=== PATIENT | female | born 1950 | race Caucasian/White ===

== ENCOUNTER 2017-05-28 16:50 | Emergency (ER) | payer BC ==
--- NOTE | 2017-05-28 18:33 | ED ---
Lower Extremity - HPI Summary HPI Summary: 67 female presents to ED with complaints of right hip pain that has been ongoing for the past 2 weeks, and not improving. Patient states she has tried taking Advil here and there along with tylenol and has not had relief. She has not been taking that constantly however, only because she does not like taking medication. States she sometimes gets numbness/tingling sensation in right lower extremity/foot intermittently. She feels the pain is dull and aching however gets sharp and shooting with certain movement. States twisting is the worst pain. Feels weak and like it will give out sometimes when walking and bearing weight, although she is able to. No known injury or trauma however, she has been using abducter machine and works out at the gym. Does not remember a specific injury. PMHx includes HTN, otherwise healthy. Denies swelling, bruising , redness and obvious deformity. No rash, no tick bites or other joint pains/ aches. - History of Current Complaint Chief Complaint: EDExtremityLower Stated Complaint: RT HIP PAIN Time Seen by Provider: 05/28/17 17:51 Hx Obtained From: Patient Mechanism Of Injury: Unknown Onset/Duration: Weeks - 2 Severity Initially: Mild Severity Currently: Moderate Pain Intensity: 8 Pain Scale Used: 0-10 Numeric Location: Is Discrete @ - anterior right hip Character Of Pain: Sharp, Dull, Aching Associated Signs And Symptoms: Positive: Negative Aggravating Factor(s): Standing, Ambulation, Movement, Weight Bearing Alleviating Factor(s): Rest, Nothing Able to Bear Weight: Yes - Allergies/Home Medications Allergies/Adverse Reactions: Allergies Allergy/AdvReac Type Severity Reaction Status Date / Time No Known Allergies Allergy Verified 05/28/16 13:50 PMH/Surg Hx/FS Hx/Imm Hx Endocrine/Hematology History: Reports: Hx Thyroid Disease Denies: Hx Diabetes Cardiovascular History: Reports: Hx Angina, Hx Hypertension Denies: Hx Coronary Artery Disease, Hx Hypercholesterolemia, Hx Myocardial Infarction Respiratory History: Denies: Hx Asthma, Hx Chronic Obstructive Pulmonary Disease (COPD) GI History: Denies: Hx Ulcer - Cancer History Hx Chemotherapy: No Hx Radiation Therapy: No - Surgical History Surgery Procedure, Year, and Place: thyroid gland removed ? 2010 - Immunization History Date of Tetanus Vaccine: up to date per pt Immunizations Up to Date: Yes Infectious Disease History: No Infectious Disease History: Denies: Hx Clostridium Difficile, Hx Hepatitis, Hx Human Immunodeficiency Virus (HIV), Hx of Known/Suspected MRSA, History Other Infectious Disease, Traveled Outside the [place] in Last 30 Days - Family History Known Family History: Positive: None Family History: Breast cancer - Social History Alcohol Use: Occasionally Substance Use Type: Reports: None Smoking Status (MU): Never Smoked Tobacco Review of Systems Constitutional: Negative Cardiovascular: Negative Respiratory: Negative Positive: Arthralgia, Myalgia, Decreased ROM - right hip Skin: Negative Positive: Paresthesia - intermittent All Other Systems Reviewed And Are Negative: Yes Physical Exam Triage Information Reviewed: Yes Vital Signs On Initial Exam: Initial Vitals Temp Pulse Resp BP Pulse Ox 97.8 F 61 18 140/92 97 05/28/17 16:55 05/28/17 16:55 05/28/17 16:55 05/28/17 16:55 05/28/17 16:55 Vital Signs Reviewed: Yes Appearance: Positive: Well-Appearing, Well-Nourished, Pain Distress - mild/ moderate with movement Skin: Positive: Warm, Skin Color Reflects Adequate Perfusion, Dry, Soft. Negative: Cold, Numb, Pale, Erythema @ Head/Face: Positive: Normal Head/Face Inspection Eyes: Positive: Conjunctiva Clear ENT: Positive: Hearing grossly normal Neck: Positive: Supple, Nontender Respiratory/Lung Sounds: Positive: Clear to Auscultation, Breath Sounds Present. Negative: Rales, Rhonchi, Wheezes Cardiovascular: Positive: Normal, RRR, Pulses are Symmetrical in both Upper and Lower Extremities - 2+ pedal b/l. Negative: Murmur, Rub Musculoskeletal: Positive: Normal, Strength/ROM Intact, Pain @ - right anterior hip, Other - anterior labral tear test, madhav, no crepitus step off or obvious deformity no edema ecchymosis or erythema. Negative: Interruption @, Abnormal @ , Edema Left, Edema Right Neurological: Positive: Normal, Sensory/Motor Intact, Alert, Oriented to Person Place, Time, CN Intact II-III, Reflexes Intact, NV Bundle Intact Distally, Abnormal Gait - favoring left side holding right hip but able to walk, negative trendelenburg shift Diagnostics - Vital Signs Vital Signs Temp Pulse Resp BP Pulse Ox 05/28/17 16:55 97.8 F 61 18 140/92 97 - Laboratory Lab Statement: Any lab studies that have been ordered have been reviewed, and results considered in the medical decision making process. - Radiology right hip/pelvis Xray Interpretation: No Acute Changes Radiology Interpretation Completed By: Radiologist Re-Evaluation - Re-Evaluation First Eval Re-Evaluation Time: 07:15 Change: Unchanged - updated on imaging results and plan. agrees and understands Lower Extremity Course/Dx - Course Course Of Treatment: requested right hip xray. appears to be suffering from MSK related pain/strain, possible labrum injury. agreed to toradol while in ED. will try NSAIDs and muscle relaxers for the next 2-3 days to see if improves and RICE. Avoid physical activity and strenuous exercise. Heating pad. Aware of worsening signs and symptoms to watch out for. Follow up with PCP for recheck as further imaging and evaluation may be required if symptoms do not improve. No other concerns for emergent etiolgy at this time. Normal vitals. - Diagnoses Differential Diagnosis/HQI/PQRI: Positive: Arthritis, Sprain, Strain, Tendonitis , Other - labrum tear Provider Diagnoses: Sprain of right hip, Hip pain, right Discharge - Discharge Plan Condition: Good Disposition: HOME Prescriptions: Cyclobenzaprine TAB* [Flexeril 10 MG TAB*] 5 mg PO BEDTIME PRN #7 tab PRN Reason: Spasms Naproxen TAB* [Naprosyn 375 mg TAB*] 375 mg PO Q8H PRN #14 tab PRN Reason: Pain Patient Education Materials: Hip Sprain (ED), Hip Pain (ED) Referrals: Deepti Engle MD [Primary Care Provider] - Delmar Castorena MD [Medical Doctor] - Additional Instructions: Take prescribed medication as directed. Muscle relaxer (flexeril) tonight at bedtime. Take naproxen (anti-inflammatory) tomorrow morning at 10am and 6pm, with food. Rest, ice and apply heat. Avoid working out and excessive physical activity until symptoms improve. Continue for 3-5 days while symptoms persists. Any new or worsening symptoms please seek medical attention promptly. Follow up with PCP as you may need further evaluation and work up if symptoms persist.
--- NOTE | 2017-05-28 18:56 | RAD ---
INDICATION: Atraumatic right hip pain COMPARISON: None TECHNIQUE: An AP view of the pelvis and AP views of the hip in neutral and abducted position were obtained FINDINGS: Bones: There are no acute bony findings. Joint spaces: The hips articulate normally. The joint spaces are preserved. SI joints/symphysis: The SI joints and symphysis are intact. Other: None IMPRESSION: THE BONY STRUCTURES ARE NORMAL FOR AGE. NO ACUTE FINDINGS.
[2017-05-28] MEDS ORDERED: Ketorolac INJ* 30 MG/ML 1 ML VIAL IM ONE (19:20)
[2017-05-28] MEDS ORDERED: Cyclobenzaprine TAB* 10 MG PO ONE (19:56)
[2017-05-28] MEDS ORDERED: Cyclobenzaprine TAB* 10 MG ONE (19:56)
[2017-05-28 20:02] VITALS: BP 134/85
== END 2017-05-28 20:01 | disposition home or self-care (01) ==
LOC: ED 16:50
DX: S73.101A Unspecified sprain of right hip, initial encounter (principal); I10 Essential (primary) hypertension; X58.XXXA Exposure to other specified factors, initial encounter; Y92.9 Unspecified place or not applicable
CPT/HCPCS: 96372; 99282; A9270-GY; J1885

== ENCOUNTER 2018-12-26 16:22 | Emergency (ER) | payer MEDICARE ==
[2018-12-26] MEDS ORDERED: NS 0.9% 1000 ML** 1,000 ML IV ONE (16:52)
--- NOTE | 2018-12-26 17:15 | ED ---
Complex/Multi-Sys Presentation - HPI Summary HPI Summary: This patient is a 68 year old F presenting to ED with a chief complaint of weakness and change in bowel movements since 2 weeks ago, when she had a pelvic CT scan with contrast. She complains of extreme fatigue, soft stool, dysphonia, abdominal pain, and diarrhea. She denies nausea, vomiting, shortness of breath, cough, and headache. Patient has a history of ovarian cancer. Her symptoms are rated 0/10 in severity. There are no aggravating or alleviating factors. Medications reviewed. Allergies noted. - History Of Current Complaint Chief Complaint: EDWeakness Time Seen by Provider: 12/26/18 16:51 Hx Obtained From: Patient Onset/Duration: Lasting Weeks Timing: Constant, Weeks Severity Currently: Moderate Severity Initially: Mild Aggravating Factor(s): nothing Alleviating Factor(s): nothing Associated Signs And Symptoms: Positive: Weakness, Diarrhea, Abdominal Pain, Other - dysphonia, soft stool. Negative: SOB, Cough - Allergies/Home Medications Allergies/Adverse Reactions: Allergies Allergy/AdvReac Type Severity Reaction Status Date / Time No Known Allergies Allergy Verified 12/26/18 16:32 Home Medications: Home Medications Lisinopril [Lisinopril 2.5 MG-] 5 mg PO DAILY 12/26/18 [History Confirmed ] Magnesium Oxide TAB* [MagOx 400 TAB*] 800 mg PO BEDTIME 12/26/18 [History Confirmed 12/26/18] PMH/Surg Hx/FS Hx/Imm Hx Endocrine/Hematology History: Reports: Hx Thyroid Disease Denies: Hx Diabetes Cardiovascular History: Reports: Hx Angina, Hx Hypertension Denies: Hx Coronary Artery Disease, Hx Hypercholesterolemia, Hx Myocardial Infarction, Hx Pacemaker/ICD Respiratory History: Denies: Hx Asthma, Hx Chronic Obstructive Pulmonary Disease (COPD) GI History: 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 3 - C SECTIONS. powerport placement 01/2018 - Immunization History Date of Tetanus Vaccine: up to date per pt Infectious Disease History: No Infectious Disease History: Denies: Hx Clostridium Difficile, Hx Hepatitis, Hx Human Immunodeficiency Virus (HIV), Hx of Known/Suspected MRSA, History Other Infectious Disease, Traveled Outside the [place] in Last 30 Days - Family History Known Family History: Positive: None Family History: Breast cancer - Social History Alcohol Use: None Substance Use Type: Reports: None Smoking Status (MU): Never Smoked Tobacco Review of Systems Positive: Fatigue Positive: Other - dysphonia Negative: Shortness Of Breath, Cough Positive: Abdominal Pain, Diarrhea. Negative: Vomiting, Nausea Positive: Weakness. Negative: Headache All Other Systems Reviewed And Are Negative: Yes Physical Exam - Summary Physical Exam Summary: VITAL SIGNS: Reviewed. GENERAL: Patient is a well-developed and nourished female who is lying comfortable in the stretcher. Patient is not in any acute respiratory distress. HEAD AND FACE: No signs of trauma. No ecchymosis, hematomas or skull depressions. No sinus tenderness. EYES: PERRLA, EOMI x 2, No injected conjunctiva, no nystagmus. EARS: Hearing grossly intact. Ear canals and tympanic membranes are within normal limits. MOUTH: Oropharynx within normal limits. NECK: Supple, trachea is midline, no adenopathy, no JVD, no carotid bruit, no c- spine tenderness, neck with full ROM. CHEST: Symmetric, no tenderness at palpation. LUNGS: Clear to auscultation bilaterally. No wheezing or crackles. Dysphonia. CVS: Regular rate and rhythm, S1 and S2 present, no murmurs or gallops appreciated. ABDOMEN: Soft, non-tender. No signs of distention. No rebound, no guarding, and no masses palpated. Bowel sounds are normal. EXTREMITIES: FROM in all major joints, no edema, no cyanosis or clubbing. NEURO: Alert and oriented x 3. No acute neurological deficits. Speech is normal and follows commands. SKIN: Dry and warm. Triage Information Reviewed: Yes Vital Signs On Initial Exam: Initial Vitals Temp Pulse Resp BP Pulse Ox 99.4 F 99 20 151/112 97 12/26/18 16:24 12/26/18 16:24 12/26/18 16:24 12/26/18 16:24 12/26/18 16:24 Vital Signs Reviewed: Yes Diagnostics - Vital Signs Vital Signs Temp Pulse Resp BP Pulse Ox 12/26/18 16:40 88 12/26/18 16:34 88 158/106 98 12/26/18 16:24 99.4 F 99 20 151/112 97 - Laboratory Result Diagrams: 12/26/18 17:19 12/26/18 17:20 Lab Statement: Any lab studies that have been ordered have been reviewed, and results considered in the medical decision making process. - Radiology CXR Radiology Interpretation Completed By: ED Physician Summary of Radiographic Findings: IMPRESSION: No active cardiopulmonary disease is noted. Central line is in place. ED physician reviewed this radiology report. - EKG 16:59 Cardiac Rate: NL - 92 bpm EKG Rhythm: Sinus Rhythm Summary of EKG Findings: EKG taken at 16:59 reveals NSR at [address] elevations. Inverted T-waves in V2. Re-Evaluation - Re-Evaluation First Eval Re-Evaluation Time: 18:50 Change: Improved Comment: Patient's symptoms have improved. Feeling well enough to be discharged home. Complex Multi-Symp Course/Dx Assessment/Plan: Patient is a 68 y/o F with chief complaint of fatigue and changes in bowel movements over the last two weeks following a CT with contrast. Blood work without any significant abnormality except for chloride of 98, CRP of 19.9, urinalysis is negative for UTI. Chest x-ray impression: No active cardiopulmonary disease is noted. Central line is in place. The patient s blood pressure is slightly elevated, therefore the patient was given an extra dose of lisinopril. In the ED course, the patient was given IV fluids for hydration. The patient is feeling better but she is still slightly weak. I went to discuss the case with oncology however the patient was to go home, therefore the patient will be discharged home with follow-up with Dr. Dumont. I discussed all the findings and test results with the patient. Patient was instructed to return to the emergency room immediately if any of the symptoms return worsens. Plan of care was discussed with the patient and understands and agrees. All questions were answered at patient satisfaction. There were no further complaints or concerns. Lung exam before discharge: CTA B/L. Good air exchange. No wheezing or crackles heard. CVS: S1 and S2 present. No murmurs appreciated. Patient is alert and oriented x 3. Patient is hemodynamically stable. Patient will be discharged home with follow up PCP in the next 2-3 days. - Diagnoses Provider Diagnoses: Weakness Discharge ED - Sign-Out/Discharge Documenting (check all that apply): Patient Departure - Patient will be discharged home. Patient Received Moderate/Deep Sedation with Procedure: No - Discharge Plan Condition: Stable Disposition: HOME Patient Education Materials: Weakness (ED), Hypertension (ED) Referrals: Deepti Engle MD [Primary Care Provider] - 3 Days Carmen Dumont MD [Medical Doctor] - 3 Days Additional Instructions: FOLLOW UP WITH YOUR PRIMARY CARE PROVIDER AND ONCOLOGY WITHIN ONE WEEK FOR SYMPTOMS NOTED TODAY. RETURN TO THE ED FOR ANY WORSENING OR NEW SYMPTOMS. - Billing Disposition and Condition Condition: STABLE Disposition: Home - Attestation Statements Document Initiated by Norma: Yes Documenting Scribe: Oscar Russo Provider For Whom Norma is Documenting (Include Credential): Abdiel Llamas MD. Scribe Attestation: Oscar Hsu scribed for Abdiel Llamas MD. on 12/27/18 at 1836. Scribe Documentation Reviewed: Yes Provider Attestation: The documentation as recorded by the Oscar voss accurately reflects the service I personally performed and the decisions made by Abdiel lamb MD. Status of Scribe Document: Viewed
[2018-12-26 17:28] LABS: Urine Appearance Clear; Urine Bacteria Absent (Absent); Urine Bilirubin Negative (Negative); Urine Blood Negative (Negative); Urine Color Yellow; Urine Glucose Negative (Negative); Urine Ketones Negative (Negative); Urine Nitrite Negative (Negative); Urine Protein 2+(100 mg/dL) (Negative); Urine Red Blood Cell Trace(0-2/hpf) (Absent); Urine Specific Gravity 1.012 (1.010-1.030); Urine Urobilinogen Negative (Negative); Urine White Blood Cell Trace(0-5/hpf) (Absent)
[2018-12-26 17:31] LABS: ABS Eosinophils 0.1 10^3/ul (0-0.6); ABS Lymphocytes 1.6 10^3/ul (1.0-4.8); ABS Monocytes 0.6 10^3/ul (0-0.8); ABS Neutrophils 4.1 10^3/ul (1.5-7.7); Eosinophil % 1.8 %; Hematocrit 40 % (35-47); Hemoglobin 13.7 g/dL (12.0-16.0); Lymphocyte % 24.8 %; Mean Corpuscular HGB Conc 34 g/dL (31-36); Mean Corpuscular Hemoglobin 32 pg (27-31); Mean Corpuscular Volume 92 fL (80-97); Nucleated Red Blood Cells % 0.1; Platelet Count 260 10^3/uL (150-450); Red Blood Count 4.35 10^6 /uL (3.70-4.87); Red Cell Distribution Width 14 % (10-15); White Blood Count 6.5 10^3/uL (3.5-10.8)
[2018-12-26 17:49] LABS: ALT 13 U/L (7-52); AST 20 U/L (13-39); Albumin 4.2 g/dL (3.2-5.2); Albumin/Globulin Ratio 1.4 (1-3); Alkaline Phosphatase 85 U/L (34-104); Anion Gap 7 mmol/L (2-11); BUN/Creatinine Ratio 24.2 (8-20); Blood Urea Nitrogen 16 mg/dL (6-24); C Reactive Protein 19.98 mg/L (<8.01); CO2 Carbon Dioxide 30 mmol/L (22-32); Calcium 9.6 mg/dL (8.6-10.3); Chloride 98 mmol/L (101-111); EGFR African American 107.1 (>60); EGFR Non-African American 88.5 (>60); Globulin 2.9 g/dL (2-4); Glucose 90 mg/dL (70-100); Magnesium 2.1 mg/dL (1.9-2.7); Potassium 3.7 mmol/L (3.5-5.0); Sodium 135 mmol/L (135-145); Total Protein 7.1 g/dL (6.4-8.9)
[2018-12-26 17:50] LABS: Troponin I 0.01 ng/mL (<0.04)
[2018-12-26 18:07] LABS: Alcohol < 10 mg/dL (<10)
[2018-12-26] MEDS ORDERED: Lisinopril TAB* 5 MG PO ONE (18:55)
[2018-12-26 19:25] VITALS: BP 149/110
--- NOTE | 2018-12-28 18:26 | PN ---
Progress Note - Progress Note Date of Service: 12/26/18 Note: Urine culture growing a small amount of e. coli, 10-25k. No report of urinary sxs. No tx needed at this time.
== END 2018-12-26 19:36 | disposition home or self-care (01) ==
LOC: ED 16:22
DX: R53.1 Weakness (principal); R19.7 Diarrhea, unspecified; R10.9 Unspecified abdominal pain; R49.0 Dysphonia; B96.20 Unspecified Escherichia coli [E. coli] as the cause of diseases classified elsewhere; I10 Essential (primary) hypertension; Z85.43 Personal history of malignant neoplasm of ovary; Z85.028 Personal history of other malignant neoplasm of stomach
CPT/HCPCS: 36415; 71046; 80053; 80320; 81003; 81015; 83605; 83735; 83880; 84443; 84484; 85025; 86140; 87077; 87086; 87186; 93005; 96361; 96374; 99284; A9270-GY; G0480; J1642

== ENCOUNTER 2019-05-27 16:51 | Emergency (ER) | payer MEDICARE ==
--- NOTE | 2019-05-27 17:52 | ED ---
Nausea/Vomiting/Diarrhea HPI - HPI Summary HPI Summary: 69-year-old female without significant past medical history of stage III ovarian cancer (receiving treatment) presents to the emergency department today with a chief complaint of diarrhea since yesterday. Patient states she took a Senokot laxative yesterday and had 5 bouts of diarrhea yesterday and 3 bouts of diarrhea today. Patient states due to this she "just don't feel right". Patient Suzan feeling lightheaded, weak, "run down". Patient otherwise feels well and denies fever, chest pain, abdominal pain, pain with urination, rash, vomiting, nausea. Surgical history and family history is noncontributory. - History of Current Complaint Chief Complaint: EDNauseaVomitDiarrh Stated Complaint: DIARRHEA/DIZZY PER PT Time Seen by Provider: 05/27/19 17:52 Hx Obtained From: Patient Onset/Duration: Gradual Onset Timing: Constant Severity Initially: Moderate Severity Currently: Moderate Pain Intensity: 8 Pain Scale Used: 0-10 Numeric Nausea/Vomiting Presence: None Diarrhea Presence: Yes Diarrhea Frequency: Every 3-4 hours Diarrhea Duration: 12-24 hours Diarrhea Characteristics: Watery - Allergies/Home Medications Allergies/Adverse Reactions: Allergies Allergy/AdvReac Type Severity Reaction Status Date / Time Adhesive Tape Allergy See Comment Verified 05/27/19 16:58 [Tegaderm Dressing] Home Medications: Home Medications Hydrochlorothiazide TAB* [Hydrodiuril TAB*] 25 mg PO DAILY 01/22/14 [History Confirmed 05/27/19] Levothyroxine TAB* [Synthroid 100 MCG TAB*] 100 mcg PO DAILY 01/22/14 [History Confirmed 05/27/19] Cholecalciferol (Vitamin D3) [Vitamin D3] 1,000 unit PO DAILY 02/11/18 [History Confirmed 05/27/19] Magnesium Oxide TAB* [MagOx 400 TAB*] 800 mg PO BEDTIME 12/26/18 [History Confirmed 05/27/19] Lisinopril TAB* [Prinivil TAB*] 5 mg PO DAILY 05/27/19 [History Confirmed ] PMH/Surg Hx/FS Hx/Imm Hx Endocrine/Hematology History: Reports: Hx Thyroid Disease Denies: Hx Diabetes Cardiovascular History: Reports: Hx Angina, Hx Hypertension Denies: Hx Coronary Artery Disease, Hx Hypercholesterolemia, Hx Myocardial Infarction, Hx Pacemaker/ICD Respiratory History: Denies: Hx Asthma, Hx Chronic Obstructive Pulmonary Disease (COPD) GI History: 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 3 - C SECTIONS. powerport placement 01/2018 - Immunization History Date of Tetanus Vaccine: up to date per pt Infectious Disease History: No Infectious Disease History: Denies: Hx Clostridium Difficile, Hx Hepatitis, Hx Human Immunodeficiency Virus (HIV), Hx of Known/Suspected MRSA, History Other Infectious Disease, Traveled Outside the [place] in Last 30 Days - Family History Known Family History: Positive: None Family History: Breast cancer - Social History Alcohol Use: None Substance Use Type: Reports: None Smoking Status (MU): Never Smoked Tobacco Review of Systems Positive: Fatigue Eyes: Negative ENT: Negative Cardiovascular: Negative Respiratory: Negative Positive: Diarrhea. Negative: Abdominal Pain, Vomiting, Nausea Genitourinary: Negative Musculoskeletal: Negative Skin: Negative Neurological/Mental Status: Negative Psychological: Normal All Other Systems Reviewed And Are Negative: Yes Physical Exam Triage Information Reviewed: Yes Vital Signs On Initial Exam: Initial Vitals Temp Pulse Resp BP Pulse Ox 97.8 F 104 18 132/106 99 05/27/19 16:53 05/27/19 16:53 05/27/19 16:53 05/27/19 16:53 05/27/19 16:53 Vital Signs Reviewed: Yes Appearance: Positive: Well-Appearing, No Pain Distress, Well-Nourished Skin: Positive: Warm, Skin Color Reflects Adequate Perfusion Eyes: Positive: EOMI, GILBERTO ENT: Positive: Hearing grossly normal Respiratory/Lung Sounds: Positive: Clear to Auscultation, Breath Sounds Present Cardiovascular: Positive: RRR, S1, S2 Abdomen Description: Positive: Nontender, Soft Bowel Sounds: Positive: Present Musculoskeletal: Positive: Strength/ROM Intact Neurological: Positive: Sensory/Motor Intact, Alert, Oriented to Person Place, Time, Normal Gait, Facial Symmetry, Speech Normal Psychiatric: Positive: Normal, Affect/Mood Appropriate AVPU Assessment: Alert Procedures - Sedation Patient Received Moderate/Deep Sedation with Procedure: No Diagnostics - Vital Signs Vital Signs Temp Pulse Resp BP Pulse Ox 05/27/19 16:53 97.8 F 104 18 132/106 99 - Laboratory Result Diagrams: 05/27/19 18:19 05/27/19 18:19 Lab Statement: Any lab studies that have been ordered have been reviewed, and results considered in the medical decision making process. Naus/Vom/Diarrhea Course/Dx - Course Course Of Treatment: Patient was evaluated in the emergency department today for weakness. Vitals noted. IV was established and patient was given IV fluid replacement. Labs returned showing no significant abnormalities including no leukocytosis, electrolyte abnormalities. Patient felt much better after IV fluid replacement. Patient discharged home with outpatient follow-up. Patient' s symptoms likely due to dehydration secondary to episodes of diarrhea. - Differential Dx/Diagnosis Provider Diagnosis: Dehydration, Diarrhea Condition At Discharge: Stable Discharge ED - Sign-Out/Discharge Documenting (check all that apply): Patient Departure - Discharge Plan Condition: Stable Disposition: HOME Patient Education Materials: Dehydration (ED) Referrals: Deepti Engle MD [Primary Care Provider] - 3 Days Additional Instructions: You were seen in the emergency department today due to dehydration. Please be sure to increase by mouth intake of fluids at home. Please follow-up with your primary care provider in 3-5 days for further evaluation and management. Please return to the emergency department immediately if you develop any new or worsening symptoms. - Billing Disposition and Condition Condition: STABLE Disposition: Home - Attestation Statements Provider Attestation: I was available for consult. This patient was seen by the [facility]. The patient was not presented to, seen by, or examined by me. Juan R Bunch MD
[2019-05-27 18:35] LABS: ABS Lymphocytes 0.9 10^3/ul (1.0-4.8); ABS Monocytes 0.5 10^3/ul (0-0.8); ABS Neutrophils 4.6 10^3/ul (1.5-7.7); Eosinophil % 0.3 %; Hematocrit 41 % (35-47); Hemoglobin 13.9 g/dL (12.0-16.0); Lymphocyte % 14.7 %; Mean Corpuscular HGB Conc 34 g/dL (31-36); Mean Corpuscular Hemoglobin 31 pg (27-31); Mean Corpuscular Volume 92 fL (80-97); Nucleated Red Blood Cells % 0.1; Platelet Count 287 10^3/uL (150-450); Red Blood Count 4.46 10^6 /uL (3.70-4.87); Red Cell Distribution Width 14 % (10-15); White Blood Count 6.1 10^3/uL (3.5-10.8)
[2019-05-27 18:48] LABS: Albumin 4.2 g/dL (3.2-5.2); Albumin/Globulin Ratio 1.2 (1-3); BUN/Creatinine Ratio 25.8 (8-20); Calcium 9.2 mg/dL (8.6-10.3); EGFR African American 114.8 (>60); EGFR Non-African American 94.9 (>60); Globulin 3.4 g/dL (2-4); Magnesium 1.9 mg/dL (1.9-2.7); Potassium 3.8 mmol/L (3.5-5.0); Total Bilirubin 0.6 mg/dL (0.2-1.0); Total Protein 7.6 g/dL (6.4-8.9)
[2019-05-27] MEDS ORDERED: NS 0.9% 1000 ML** 2,000 ML IV ONE (19:36)
[2019-05-27] MEDS ORDERED: NS 0.9% 1000 ML** 1,000 ML IV ONE (19:36)
[2019-05-27 21:29] VITALS: BP 118/78
== END 2019-05-27 21:42 | disposition home or self-care (01) ==
LOC: ED 16:51
DX: R19.7 Diarrhea, unspecified (principal); E86.0 Dehydration; C56.9 Malignant neoplasm of unspecified ovary; C78.6 Secondary malignant neoplasm of retroperitoneum and peritoneum; E03.9 Hypothyroidism, unspecified; I10 Essential (primary) hypertension; Z79.890 Hormone replacement therapy; Z79.899 Other long term (current) drug therapy
CPT/HCPCS: 36415; 80053; 83735; 85025; 96360; 96361; 99284; J1642

== ENCOUNTER 2019-07-06 08:24 | Day surgery (SDC) | payer MEDICARE ==
--- NOTE | 2019-07-01 13:32 | HP ---
CC: Dr. Dumont* DATE OF PLANNED ADMISSION: 07/06/2019. HISTORY OF PRESENT ILLNESS: Ms. Foster is a 69-year-old white female with metastatic ovarian carcinoma, new onset of right ureteral obstruction and right hydronephrosis for cystoscopy and insertion of right ureteral stent. Ms. Foster was diagnosed in November 2017 with metastatic ovarian carcinoma, presenting with ascites, bloating and omental metastasis. She has been on chemotherapy, treated and followed by Dr. Dumont. She was recently seen in the ER because of increasing bloating, and had a CT of the chest, abdomen, and pelvis which showed bilateral mild to moderate pleural effusions, the known omental carcinomatosis, and there was a new finding of right hydroureteronephrosis with the obstruction at the level of the mid right ureter. She did not have any flank pain or renal symptoms. The serum Cr has remained normal. The patient was recently seen by Dr. Dumont, and the plan is to resume chemotherapy. Because of the new onset of hydronephrosis, and as she is starting systemic chemotherapy, the patient was referred to our office for drainage of the right kidney. The patient has been totally asymptomatic from her kidney, having no flank pain and no symptoms of colic. She also has had no voiding symptoms and no gross hematuria or symptoms of urinary tract infections. She denies any past history of renal diseases or calculi. PAST MEDICAL HISTORY: The patient is hypertensive, maintained on Lisinopril 5 mg daily and HCTZ 25 mg daily. She has hypothyroidism and is maintained on Levothyroxine 100 mcg daily. She has a history of GERD and is on Omeprazole 40 mg daily. She is just being restarted on chemotherapy. ALLERGIES: The patient denies any allergies to medications. FAMILY HISTORY: Her mother and her maternal aunt, both of them had breast cancer. SOCIAL HISTORY: She is a nonsmoker. No history of drinking or recreational drug use. No history of mental health problems. PHYSICAL EXAMINATION GENERAL: Pleasant white female who looks her age. HEENT: She is not jaundiced. NECK: No neck masses. LUNGS: Lungs are clear, no wheezing or rhonchi. There is a slight decrease in the breath sounds in the bases of the lungs bilaterally. HEART: Regular and rhythmic, no murmurs. ABDOMEN: Abdominal exam, some bloating, no tenderness. IMPRESSION: Metastatic ovarian carcinoma with mild to moderate bilateral pleural effusions, and a new onset of moderate right ureteral obstruction secondary to retroperitoneal disease obstructing the mid ureter. PLAN: Cystoscopy and insertion of right ureteral stent. I discussed the procedure in detail with the patient. Some of the potential complications including infection, episode of hematuria, and irritative bladder symptoms from the stent. The patient also understands that the stent will need to be replaced periodically. All of her questions were answered. [id number]/[facility] #: [id number] SIDNEY
[~2019-07-06 08:24] MED LIST: Buffered Lidocaine 1% SYRIN* 1 ML/SYRINGE INTRADERM ONE; Lactated Ringers 1000 ML Bag* 1,000 ML IV SCH
[2019-07-06] MEDS ORDERED: cefTRIAXone(*) 2 GM ADDV.VIAL IVPB ONE (08:47)
[2019-07-06] MEDS ORDERED: Iohexol 180 (CONTRAST) 10 ML SDV IV ONE (10:27)
[2019-07-06] MEDS ORDERED: Midazolam* 1 MG/ML 2 ML VIAL (2 MG) ONE (10:41)
[2019-07-06] MEDS ORDERED: Lidocaine 2% PF * 5 ML VIAL ONE (10:42)
[2019-07-06] MEDS ORDERED: Ondansetron INJ* 2 MG/ML VIAL IV PRN (10:59)
[2019-07-06] MEDS ORDERED: Naloxone* 0.4 MG/ML 1 ML VIAL IV PRN (10:59)
[2019-07-06] MEDS ORDERED: fentaNYL* 50 MCG/ML 2 ML VIAL (100 MCG VIAL) IV PRN (10:59)
[2019-07-06] MEDS ORDERED: Ketorolac INJ* 30 MG/ML 1 ML VIAL IV PRN (10:59)
[2019-07-06] MEDS ORDERED: oxyCODONE TAB* 5 MG TAB PO PRN (10:59)
[2019-07-06] MEDS ORDERED: Phenylephrine 40 MCG/ML SYRINGE ONE (11:09)
[2019-07-06 11:59] VITALS: BP 154/95
--- NOTE | 2019-07-06 12:11 | OP ---
CC: Dr. Dumont * DATE OF OPERATION: 07/06/19 - [facility] DATE OF : 46 SURGEON: Dr. Wesley. ANESTHESIOLOGIST: Dr. Pope. ANESTHESIA: IV sedation with MAC. PRE-OP DIAGNOSES: 1. Metastatic ovarian carcinoma. 2. Right ureteral obstruction and right hydronephrosis due to above. POST-OP DIAGNOSES: 1. Metastatic ovarian carcinoma. 2. Right ureteral obstruction and right hydronephrosis due to above. OPERATIVE PROCEDURES: 1. Cystoscopy. 2. Right retrograde pyelography. 3. Insertion of right ureteral stent (black silicone, 8.5-Burkinan, 24 cm). INDICATIONS FOR PROCEDURE: Ms. Foster is a 69-year-old white female with metastatic ovarian carcinoma who recently was noted on her followup CT to have new onset right hydronephrosis with the obstruction at the level of the mid-to- proximal right ureter. No history of hematuria and no flank pain. The patient is presently on a second round of chemotherapy. Because of the above history and finding and the new onset of right hydronephrosis, the above procedure was advised and accepted. PATHOLOGY AT CYSTOSCOPY: The bladder mucosa looked normal. There were no suspicious bladder lesions seen. No calculi or diverticula were noted. Upon right retrograde pyelography, there was a 2 cm long segment of narrowing of the right ureter at the level between the junction of the proximal and middle third of the ureter. The obstruction seemed extrinsic and consistent with the retroperitoneal disease seen at that level on her CT scan. There were no filling defects noted in the lumen of the ureter and no radiopaque calculi seen on fluoroscopy. There was tortuosity of the ureter proximal to the level of the obstruction. Moderate right hydronephrosis was noted. A brisk clear efflux was seen coming from the right kidney following the placement of the open -ended catheter. DESCRIPTION OF PROCEDURE: With the patient in the lithotomy position and under intravenous sedation and anesthesia monitoring, the patient was prepped and draped for a cystoscopy. Cystoscopy was performed. The bladder was carefully inspected and the above findings were noted. A flexible-tip guidewire was positioned in the distal right ureter and an open-ended catheter was fed on top of the guidewire and positioned in the distal ureter. Retrograde pyelography was then performed demonstrating the above pathology. The guidewire was then reintroduced and after several attempts was successfully introduced past the tortuousities of the ureter inside the collecting system. A black silicone stent, 8.5-Burkinan, 24 cm long was then placed with the proximal end coiling in renal pelvis and the distal end coiling inside the bladder. There was prompt drainage of contrast from the kidney and no extravasation. The patient tolerated the procedure well and left the operating room in good condition. [id number]/[facility] #: [id number] MTDD
== END 2019-07-06 12:19 | disposition home or self-care (01) ==
LOC: OR 08:24
PROVIDERS: ATTEND Urology
DX: N13.39 Other hydronephrosis (principal); C56.9 Malignant neoplasm of unspecified ovary; R18.0 Malignant ascites; C78.6 Secondary malignant neoplasm of retroperitoneum and peritoneum; I10 Essential (primary) hypertension; K21.9 Gastro-esophageal reflux disease without esophagitis; J90 Pleural effusion, not elsewhere classified
CPT/HCPCS: 74420; C1876; J0696; J2250

== ENCOUNTER 2020-08-08 09:56 | Inpatient (IN) ==
[2020-08-08] MEDS ORDERED: NS 0.9% 1000 ml BAG 1,000 ML IV ONE (10:13)
[2020-08-08 11:09] LABS: Hematocrit 32 % (35-47); Mean Corpuscular HGB Conc 34 g/dL (31-36); Mean Corpuscular Hemoglobin 32 pg (27-31); Mean Corpuscular Volume 93 fL (80-97); Mean Platelet Volume 8.5 fL (7.4-10.4); Platelet Count 107 10^3/uL (150-450); Red Blood Count 3.48 10^6 /uL (3.70-4.87); Red Cell Distribution Width 16 % (10-15); White Blood Count 1.9 10^3/uL (3.5-10.8)
[2020-08-08 11:12] LABS: ABS Lymphocytes 0.6 10^3/ul (1.0-4.8); ABS Monocytes 0.4 10^3/ul (0-0.8); Eosinophil % 0.3 %; Lymphocyte % 31.7 %
[2020-08-08 11:13] LABS: ABS Neutrophils 0.8 10^3/ul (1.5-7.7)
[2020-08-08 11:30] LABS: C Reactive Protein 82.14 mg/L (<8.01); Calcium 9.1 mg/dL (8.6-10.3); EGFR African American 96.3 (>60); EGFR Non-African American 79.6 (>60); Globulin 2.9 g/dL (2-4); Magnesium 1.2 mg/dL (1.9-2.7); Potassium 3.3 mmol/L (3.5-5.0); Total Bilirubin 0.5 mg/dL (0.2-1.0); Total Protein 5.9 g/dL (6.4-8.9)
[2020-08-08 11:46] LABS: TSH Ultra Thyroid Stim Horm 5.34 mcIU/mL (0.34-5.60)
[2020-08-08] MEDS ORDERED: Ondansetron 4 mg VIAL 2 MG/ML 2 ml VIAL IV PRN (12:35)
[2020-08-08] MEDS ORDERED: Morphine 2 MG/ML SYRINGE IV PRN (12:40)
[2020-08-08] MEDS ORDERED: Magnesium Sulf 4 GM/100 ML IV 4,000 MG/100 ML BAG IVPB ONE (12:49)
[2020-08-08] MEDS: Pantoprazole VIAL 40 MG VIAL IV SCH (13:20)
[2020-08-08] MEDS: Magic MouthWash2-BEN/MAAL/LIDO/NYST 240 ML BTL (alt formulation) SWISH SWAL SCH ×3 (14:59→21:17)
[2020-08-08] MEDS: Enoxaparin 40 MG/0.4 ML SYR SUBCUT SCH (15:00)
[2020-08-08] MEDS: NS 0.9% 1000 ml BAG 1,000 ML IV SCH (15:11)
[2020-08-08 15:51] LABS: Urine Appearance Cloudy; Urine Bilirubin Negative (Negative); Urine Blood Negative (Negative); Urine Color Yellow; Urine Glucose Negative (Negative); Urine Ketones 1+ (Negative); Urine Nitrite Negative (Negative); Urine Protein 2+(100 mg/dL) (Negative); Urine Specific Gravity 1.014 (1.002-1.030); Urine Urobilinogen Negative (Negative)
[2020-08-08 16:02] LABS: Urine Bacteria 3+ (Absent); Urine Red Blood Cell Absent (Absent); Urine Squamous Epithelial Cell Present (Absent); Urine White Blood Cell 1+(6-10/hpf) (Absent)
[2020-08-09 05:44] LABS: Hematocrit 29 % (35-47); Hemoglobin 9.8 g/dL (12.0-16.0); Mean Corpuscular HGB Conc 34 g/dL (31-36); Mean Corpuscular Hemoglobin 32 pg (27-31); Mean Corpuscular Volume 93 fL (80-97); Mean Platelet Volume 8.4 fL (7.4-10.4); Platelet Count 115 10^3/uL (150-450); Red Blood Count 3.09 10^6 /uL (3.70-4.87); Red Cell Distribution Width 16 % (10-15); White Blood Count 1.9 10^3/uL (3.5-10.8)
[2020-08-09 05:50] LABS: ABS Lymphocytes 0.7 10^3/ul (1.0-4.8); ABS Monocytes 0.4 10^3/ul (0-0.8); ABS Neutrophils 0.8 10^3/ul (1.5-7.7); Eosinophil % 0.7 %; Lymphocyte % 34.9 %
[2020-08-09 06:02] LABS: Albumin 2.6 g/dL (3.2-5.2); Calcium 7.8 mg/dL (8.6-10.3); EGFR African American 108.4 (>60); EGFR Non-African American 89.6 (>60); Globulin 2.7 g/dL (2-4); Potassium 3.4 mmol/L (3.5-5.0); Total Bilirubin 0.4 mg/dL (0.2-1.0); Total Protein 5.3 g/dL (6.4-8.9)
[2020-08-09] MEDS: NS 0.9% 1000 ml BAG 1,000 ML IV SCH (06:33)
[2020-08-09] MEDS: Pantoprazole VIAL 40 MG VIAL IV SCH (07:56)
[2020-08-09] MEDS: Magic MouthWash2-BEN/MAAL/LIDO/NYST 240 ML BTL (alt formulation) SWISH SWAL SCH ×4 (08:05→21:34)
[2020-08-09 08:38] LABS: Magnesium 1.7 mg/dL (1.9-2.7)
[2020-08-09] MEDS ORDERED: fentaNYL 100 mcg/2 ml 50 MCG/ML VIAL ONE (13:24)
[2020-08-09] MEDS ORDERED: Midazolam 10 mg/10 ml VIAL 1 mg/ml 10 ml VIAL (10 mg) ONE (13:24)
[2020-08-09] MEDS: Enoxaparin 40 MG/0.4 ML SYR SUBCUT SCH (16:06)
[2020-08-09] MEDS ORDERED: Magnesium Sulfate IV 3 GM in NS 0.9% 100 ml BAG 100 ML IVPB ONE (16:11)
[2020-08-09] MEDS: NS 0.9% w/ 40 Meq KCL 1000 ML 1,000 ML IV SCH (17:24)
[2020-08-09] MEDS ORDERED: Iohexol 300 (CONTRAST) 10 ML SDV IV ONE (17:46)
[2020-08-10] MEDS: NS 0.9% w/ 40 Meq KCL 1000 ML 1,000 ML IV SCH ×2 (04:27→15:11)
[2020-08-10 05:16] LABS: ABS Lymphocytes 0.5 10^3/ul (1.0-4.8); ABS Monocytes 0.4 10^3/ul (0-0.8); Eosinophil % 0.8 %; Hematocrit 29 % (35-47); Hemoglobin 9.6 g/dL (12.0-16.0); Lymphocyte % 26.5 %; Mean Corpuscular HGB Conc 33 g/dL (31-36); Mean Corpuscular Hemoglobin 31 pg (27-31); Mean Corpuscular Volume 94 fL (80-97); Nucleated Red Blood Cells % 0.2; Platelet Count 151 10^3/uL (150-450); Red Blood Count 3.08 10^6 /uL (3.70-4.87); Red Cell Distribution Width 16 % (10-15); White Blood Count 1.9 10^3/uL (3.5-10.8)
[2020-08-10 05:37] LABS: Albumin 2.4 g/dL (3.2-5.2); Calcium 7.2 mg/dL (8.6-10.3); EGFR African American 123.6 (>60); EGFR Non-African American 102.2 (>60); Globulin 2.5 g/dL (2-4); Total Bilirubin 0.4 mg/dL (0.2-1.0); Total Protein 4.9 g/dL (6.4-8.9)
[2020-08-10] MEDS: Pantoprazole VIAL 40 MG VIAL IV SCH (08:58)
[2020-08-10] MEDS: Magic MouthWash2-BEN/MAAL/LIDO/NYST 240 ML BTL (alt formulation) SWISH SWAL SCH ×4 (08:59→19:59)
[2020-08-10] MEDS: Enoxaparin 40 MG/0.4 ML SYR SUBCUT SCH (13:57)
[2020-08-10] MEDS: Senna TAB 8.6 mg TAB PO SCH (19:59)
[2020-08-11] MEDS: NS 0.9% w/ 40 Meq KCL 1000 ML 1,000 ML IV SCH (01:22)
[2020-08-11] MEDS: Magic MouthWash2-BEN/MAAL/LIDO/NYST 240 ML BTL (alt formulation) SWISH SWAL SCH (08:48)
[2020-08-11] MEDS: Pantoprazole VIAL 40 MG VIAL IV SCH (08:50)
[2020-08-11] MEDS: Senna TAB 8.6 mg TAB PO SCH (08:50)
[2020-08-11 10:44] VITALS: BP 163/91
== END 2020-08-11 11:22 | disposition home or self-care (01) | DRG 391 ==
LOC: ED 09:56 → MED 12:35
PROVIDERS: ADMIT Hospitalist; ATTEND Internal Medicine Hematology & Oncology

== ENCOUNTER 2020-09-07 11:57 | Inpatient (IN) ==
[2020-09-07] MEDS ORDERED: Ondansetron 4 mg VIAL 2 MG/ML 2 ml VIAL IV ONE (12:29)
[2020-09-07] MEDS ORDERED: NS 0.9% 1000 ml BAG 1,000 ML IV ONE (12:29)
[2020-09-07 13:35] LABS: ABS Lymphocytes 0.9 10^3/ul (1.0-4.8); ABS Monocytes 0.7 10^3/ul (0-0.8); ABS Neutrophils 7.4 10^3/ul (1.5-7.7); Hematocrit 32 % (35-47); Lymphocyte % 10.2 %; Mean Corpuscular HGB Conc 34 g/dL (31-36); Mean Corpuscular Hemoglobin 32 pg (27-31); Mean Corpuscular Volume 93 fL (80-97); Mean Platelet Volume 7.7 fL (7.4-10.4); Platelet Count 265 10^3/uL (150-450); Red Blood Count 3.47 10^6 /uL (3.70-4.87); Red Cell Distribution Width 19 % (10-15); White Blood Count 9.1 10^3/uL (3.5-10.8)
[2020-09-07 13:52] LABS: Albumin 2.5 g/dL (3.2-5.2); C Reactive Protein 77.68 mg/L (<8.01); EGFR African American 102.9 (>60); EGFR Non-African American 85.1 (>60); Globulin 2.6 g/dL (2-4); Magnesium 1.4 mg/dL (1.9-2.7); Potassium 3.7 mmol/L (3.5-5.0); Total Bilirubin 0.5 mg/dL (0.2-1.0); Total Protein 5.1 g/dL (6.4-8.9)
[2020-09-07 14:21] LABS: TSH Ultra Thyroid Stim Horm 0.56 mcIU/mL (0.34-5.60)
[2020-09-07 14:23] LABS: Free T4 1.25 ng/dL (0.61-1.12)
[2020-09-07] MEDS ORDERED: Iohexol 300 (CONTRAST) 10 ML SDV IV ONE (14:29)
[2020-09-07] MEDS ORDERED: Magnesium Sulfate 2 gm BAG 2 GM/50 ML BAG IVPB ONE ×2 (14:34→21:11)
[2020-09-07] MEDS ORDERED: Piperacillin/Tazobac ADVAN 3.375 GM in NS 0.9% 100 ml BAG 100 ML IV ONE (15:18)
[2020-09-07 16:14] LABS: Urine Appearance Clear; Urine Bilirubin Negative (Negative); Urine Blood Negative (Negative); Urine Color Yellow; Urine Glucose Negative (Negative); Urine Ketones Negative (Negative); Urine Nitrite Negative (Negative); Urine Protein Negative (Negative); Urine Specific Gravity 1.027 (1.002-1.030); Urine Urobilinogen Negative (Negative)
[2020-09-07] MEDS ORDERED: Zosyn per Pharmacy NOTE FOLLOW UP SCH (22:00)
[2020-09-07] MEDS: Enoxaparin 40 MG/0.4 ML SYR SUBCUT SCH (23:02)
[2020-09-07] MEDS: NS 0.9% 1000 ml BAG 1,000 ML IV SCH (23:02)
[2020-09-07] MEDS ORDERED: ZOSYN 3.375 GM x ONE DOSE over 30 miuntes IV (23:30)
[2020-09-08] MEDS: ZOSYN 3.375 GM Q8H per EXTENDED INFUSION IV SCH ×3 (05:45→21:05)
[2020-09-08 06:23] LABS: ABS Eosinophils 0.1 10^3/ul (0-0.6); ABS Lymphocytes 0.8 10^3/ul (1.0-4.8); ABS Monocytes 0.6 10^3/ul (0-0.8); ABS Neutrophils 3.7 10^3/ul (1.5-7.7); Hematocrit 28 % (35-47); Hemoglobin 9.4 g/dL (12.0-16.0); Lymphocyte % 15.9 %; Mean Corpuscular HGB Conc 34 g/dL (31-36); Mean Corpuscular Hemoglobin 32 pg (27-31); Mean Corpuscular Volume 93 fL (80-97); Mean Platelet Volume 7.7 fL (7.4-10.4); Platelet Count 233 10^3/uL (150-450); Red Blood Count 2.98 10^6 /uL (3.70-4.87); Red Cell Distribution Width 19 % (10-15); White Blood Count 5.3 10^3/uL (3.5-10.8)
[2020-09-08 06:40] LABS: Calcium 7.4 mg/dL (8.6-10.3); EGFR African American 94.8 (>60); EGFR Non-African American 78.4 (>60); Magnesium 2.2 mg/dL (1.9-2.7); Potassium 3.6 mmol/L (3.5-5.0)
[2020-09-08] MEDS: NS 0.9% 1000 ml BAG 1,000 ML IV SCH ×2 (10:41→21:05)
[2020-09-08] MEDS: Ondansetron 4 mg VIAL 2 MG/ML 2 ml VIAL IV PRN (15:55)
[2020-09-08] MEDS: Enoxaparin 40 MG/0.4 ML SYR SUBCUT SCH (21:02)
[2020-09-09] MEDS: ZOSYN 3.375 GM Q8H per EXTENDED INFUSION IV SCH ×3 (06:02→21:17)
[2020-09-09] MEDS: Ondansetron 4 mg VIAL 2 MG/ML 2 ml VIAL IV PRN ×3 (07:18→20:24)
[2020-09-09] MEDS: NS 0.9% 1000 ml BAG 1,000 ML IV SCH (07:22)
[2020-09-09 13:16] LABS: ABS Eosinophils 0.1 10^3/ul (0-0.6); ABS Lymphocytes 0.7 10^3/ul (1.0-4.8); ABS Monocytes 0.6 10^3/ul (0-0.8); ABS Neutrophils 4.2 10^3/ul (1.5-7.7); Eosinophil % 2.4 %; Hematocrit 29 % (35-47); Hemoglobin 9.9 g/dL (12.0-16.0); Lymphocyte % 12.7 %; Mean Corpuscular HGB Conc 34 g/dL (31-36); Mean Corpuscular Hemoglobin 32 pg (27-31); Mean Corpuscular Volume 92 fL (80-97); Mean Platelet Volume 7.7 fL (7.4-10.4); Platelet Count 241 10^3/uL (150-450); Red Blood Count 3.13 10^6 /uL (3.70-4.87); Red Cell Distribution Width 19 % (10-15); White Blood Count 5.6 10^3/uL (3.5-10.8)
[2020-09-09 13:23] LABS: INR 1.17 (0.82-1.09)
[2020-09-09] MEDS ORDERED: fentaNYL 100 mcg/2 ml 50 MCG/ML VIAL ONE (13:36)
[2020-09-09 13:42] LABS: Albumin 2.2 g/dL (3.2-5.2); Albumin/Globulin Ratio 0.9 (1-3); Calcium 7.5 mg/dL (8.6-10.3); EGFR African American 104.7 (>60); EGFR Non-African American 86.5 (>60); Globulin 2.5 g/dL (2-4); Potassium 3.1 mmol/L (3.5-5.0); Total Bilirubin 0.7 mg/dL (0.2-1.0); Total Protein 4.7 g/dL (6.4-8.9)
[2020-09-10] MEDS: Enoxaparin 40 MG/0.4 ML SYR SUBCUT SCH ×2 (00:22→21:44)
[2020-09-10] MEDS: ZOSYN 3.375 GM Q8H per EXTENDED INFUSION IV SCH ×3 (05:18→21:42)
[2020-09-10] MEDS: Ondansetron 4 mg VIAL 2 MG/ML 2 ml VIAL IV PRN (05:55)
[2020-09-10] MEDS ORDERED: Dexamethasone IV 4 MG/ML VIAL 1 ml VIAL IV SLOW PU ONE (09:00)
[2020-09-10 09:05] LABS: ABS Eosinophils 0.1 10^3/ul (0-0.6); ABS Lymphocytes 0.7 10^3/ul (1.0-4.8); ABS Monocytes 0.7 10^3/ul (0-0.8); ABS Neutrophils 4.8 10^3/ul (1.5-7.7); Eosinophil % 1.7 %; Hematocrit 31 % (35-47); Hemoglobin 10.4 g/dL (12.0-16.0); Lymphocyte % 11.5 %; Mean Corpuscular HGB Conc 33 g/dL (31-36); Mean Corpuscular Hemoglobin 31 pg (27-31); Mean Corpuscular Volume 93 fL (80-97); Mean Platelet Volume 7.2 fL (7.4-10.4); Platelet Count 285 10^3/uL (150-450); Red Blood Count 3.38 10^6 /uL (3.70-4.87); Red Cell Distribution Width 19 % (10-15); White Blood Count 6.4 10^3/uL (3.5-10.8)
[2020-09-10 09:35] LABS: Albumin 2.3 g/dL (3.2-5.2); Albumin/Globulin Ratio 0.8 (1-3); Calcium 7.6 mg/dL (8.6-10.3); EGFR African American 102.9 (>60); EGFR Non-African American 85.1 (>60); Globulin 2.8 g/dL (2-4); Potassium 3.1 mmol/L (3.5-5.0); Total Bilirubin 0.7 mg/dL (0.2-1.0); Total Protein 5.1 g/dL (6.4-8.9)
[2020-09-10 10:25] LABS: Magnesium 1.4 mg/dL (1.9-2.7)
[2020-09-10] MEDS ORDERED: Magnesium Sulf 4 GM/100 ML IV 4,000 MG/100 ML BAG IVPB ONE (11:59)
[2020-09-10] MEDS: NS 0.9% w/ 40 Meq KCL 1000 ML 1,000 ML IV SCH (12:48)
[2020-09-11] MEDS: NS 0.9% w/ 40 Meq KCL 1000 ML 1,000 ML IV SCH (01:39)
[2020-09-11] MEDS: Ondansetron 4 mg VIAL 2 MG/ML 2 ml VIAL IV PRN ×2 (05:58→16:10)
[2020-09-11] MEDS: ZOSYN 3.375 GM Q8H per EXTENDED INFUSION IV SCH ×3 (06:00→22:22)
[2020-09-11 06:14] LABS: ABS Lymphocytes 0.9 10^3/ul (1.0-4.8); ABS Monocytes 1.1 10^3/ul (0-0.8); ABS Neutrophils 6.2 10^3/ul (1.5-7.7); Eosinophil % 0.1 %; Hematocrit 31 % (35-47); Hemoglobin 10.5 g/dL (12.0-16.0); Lymphocyte % 11.4 %; Mean Corpuscular HGB Conc 33 g/dL (31-36); Mean Corpuscular Hemoglobin 31 pg (27-31); Mean Corpuscular Volume 92 fL (80-97); Mean Platelet Volume 7.6 fL (7.4-10.4); Platelet Count 335 10^3/uL (150-450); Red Blood Count 3.41 10^6 /uL (3.70-4.87); Red Cell Distribution Width 19 % (10-15); White Blood Count 8.3 10^3/uL (3.5-10.8)
[2020-09-11 06:27] LABS: Albumin 2.3 g/dL (3.2-5.2); Calcium 7.6 mg/dL (8.6-10.3); Magnesium 1.8 mg/dL (1.9-2.7); Potassium 3.7 mmol/L (3.5-5.0); Total Bilirubin 0.4 mg/dL (0.2-1.0)
[2020-09-11 06:32] LABS: Albumin/Globulin Ratio 0.8 (1-3); EGFR African American 118.9 (>60); EGFR Non-African American 98.3 (>60); Globulin 2.9 g/dL (2-4); Total Protein 5.2 g/dL (6.4-8.9)
[2020-09-11] MEDS ORDERED: Magnesium Sulfate 2 gm BAG 2 GM/50 ML BAG IVPB ONE (12:24)
[2020-09-11] MEDS: Enoxaparin 40 MG/0.4 ML SYR SUBCUT SCH (22:22)
[2020-09-12] MEDS: ZOSYN 3.375 GM Q8H per EXTENDED INFUSION IV SCH (05:56)
[2020-09-12 06:30] LABS: ABS Lymphocytes 0.9 10^3/ul (1.0-4.8); ABS Monocytes 1.1 10^3/ul (0-0.8); ABS Neutrophils 7.2 10^3/ul (1.5-7.7); Eosinophil % 0.2 %; Hematocrit 30 % (35-47); Hemoglobin 10.3 g/dL (12.0-16.0); Lymphocyte % 9.7 %; Mean Corpuscular HGB Conc 34 g/dL (31-36); Mean Corpuscular Hemoglobin 31 pg (27-31); Mean Corpuscular Volume 91 fL (80-97); Mean Platelet Volume 7.8 fL (7.4-10.4); Platelet Count 324 10^3/uL (150-450); Red Blood Count 3.32 10^6 /uL (3.70-4.87); Red Cell Distribution Width 19 % (10-15); White Blood Count 9.2 10^3/uL (3.5-10.8)
[2020-09-12 06:49] LABS: Calcium 7.6 mg/dL (8.6-10.3); EGFR African American 128.8 (>60); EGFR Non-African American 106.4 (>60); Magnesium 1.7 mg/dL (1.9-2.7); Potassium 3.7 mmol/L (3.5-5.0)
[2020-09-12] MEDS: Ondansetron 4 mg VIAL 2 MG/ML 2 ml VIAL IV PRN ×2 (09:48→23:04)
[2020-09-12] MEDS ORDERED: Magnesium Sulfate IV 3 GM in NS 0.9% 100 ml BAG 100 ML IVPB ONE (11:00)
[2020-09-12] MEDS: Enoxaparin 40 MG/0.4 ML SYR SUBCUT SCH (22:24)
[2020-09-13] MEDS: Ondansetron 4 mg VIAL 2 MG/ML 2 ml VIAL IV PRN (08:22)
[2020-09-13] MEDS ORDERED: Scopolamine PATCH Remove NOTE PATCH OFF SCH (11:00)
[2020-09-13] MEDS ORDERED: Palonosetron 0.05 MG/ML 5 ML VIAL IV ONE (14:00)
[2020-09-13] MEDS ORDERED: Dexamethasone IV 4 MG/ML VIAL 1 ml VIAL IV SLOW PU ONE (14:00)
[2020-09-13] MEDS ORDERED: DOXORUBICIN LIPOSOMAL IVPB ONE (16:30)
[2020-09-13] MEDS ORDERED: D5W IVPB ONE (16:30)
[2020-09-13] MEDS: Enoxaparin 40 MG/0.4 ML SYR SUBCUT SCH (22:39)
[2020-09-14] MEDS: Ondansetron 4 mg VIAL 2 MG/ML 2 ml VIAL IV PRN ×3 (03:11→20:26)
[2020-09-14 06:36] LABS: ABS Lymphocytes 0.7 10^3/ul (1.0-4.8); Hematocrit 31 % (35-47); Hemoglobin 10.7 g/dL (12.0-16.0); Lymphocyte % 8.5 %; Mean Corpuscular HGB Conc 34 g/dL (31-36); Mean Corpuscular Hemoglobin 31 pg (27-31); Mean Corpuscular Volume 91 fL (80-97); Mean Platelet Volume 7.7 fL (7.4-10.4); Platelet Count 372 10^3/uL (150-450); Red Blood Count 3.42 10^6 /uL (3.70-4.87); Red Cell Distribution Width 19 % (10-15); White Blood Count 8.8 10^3/uL (3.5-10.8)
[2020-09-14 07:04] LABS: Albumin 2.5 g/dL (3.2-5.2); Albumin/Globulin Ratio 0.8 (1-3); Calcium 8.1 mg/dL (8.6-10.3); EGFR African American 131.5 (>60); EGFR Non-African American 108.6 (>60); Globulin 3.1 g/dL (2-4); Potassium 3.3 mmol/L (3.5-5.0); Total Bilirubin 0.4 mg/dL (0.2-1.0); Total Protein 5.6 g/dL (6.4-8.9)
[2020-09-14] MEDS ORDERED: Pantoprazole VIAL 40 MG VIAL IV ONE (10:50)
[2020-09-14] MEDS: hydrALAZINE 20 mg/ml 1 ML Vial IV IV SLOW PU PRN ×2 (11:46→20:04)
[2020-09-14] MEDS: Famotidine IV 10 MG/ML 2 ml VIAL (20 mg) IV SLOW PU SCH ×2 (11:47→20:04)
[2020-09-14] MEDS: Enoxaparin 40 MG/0.4 ML SYR SUBCUT SCH (20:04)
[2020-09-15] MEDS: Famotidine IV 10 MG/ML 2 ml VIAL (20 mg) IV SLOW PU SCH (08:08)
[2020-09-15] MEDS: Ondansetron 4 mg VIAL 2 MG/ML 2 ml VIAL IV PRN (08:09)
[2020-09-15] MEDS ORDERED: Pantoprazole VIAL 40 MG VIAL IV SCH (09:00)
[2020-09-15 11:39] LABS: Albumin 2.5 g/dL (3.2-5.2); Albumin/Globulin Ratio 0.8 (1-3); Calcium 8.2 mg/dL (8.6-10.3); EGFR African American 153.8 (>60); EGFR Non-African American 127.1 (>60); Total Bilirubin 0.4 mg/dL (0.2-1.0); Total Protein 5.5 g/dL (6.4-8.9)
[2020-09-15] MEDS: KCL 20 MEQ/100 ML IVPREMIX 20 MEQ/100 ML BAG IV SCH ×2 (12:00→14:10)
[2020-09-15 15:47] VITALS: BP 145/93
== END 2020-09-15 17:25 | disposition hospice, home (50) | DRG 392 ==
LOC: ED 11:57 → MED 22:50
PROVIDERS: ADMIT Internal Medicine; ATTEND Internal Medicine Hematology & Oncology